=== PATIENT | male | born 1970 | race American Indian/Alaskan Native ===

== ENCOUNTER 2018-06-07 12:46 | Emergency (ER) | payer BC, OTHER ==
[2018-06-07] MEDS ORDERED: Methocarbamol 500 MG Tab PO ONE (15:15)
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
[2018-06-08 00:14] VITALS: BP 141/90; PULSE 88; RESP 18; TEMP 98.1; O2SAT 98; BMI 35.4
== END 2018-06-07 16:13 | disposition home or self-care (01) ==
LOC: ED 12:46
DX: M54.6 Pain in thoracic spine (principal)
CPT/HCPCS: 96372; 99283; J1885